=== PATIENT | male | born 1945 | race Caucasian/White ===

== ENCOUNTER 2018-09-01 02:08 | Outpatient (CLI) | payer MEDICARE, BC, SELFPAY ==
[2018-09-01 11:42] LABS: Vitamin B12 > 2000 pg/mL (193-986)
== END 2018-09-01 02:28 ==
PROVIDERS: PCP Emergency Medicine; Visit Provider Emergency Medicine
DX: E56.9 Vitamin deficiency, unspecified (principal)
CPT/HCPCS: 36415; 82607

== ENCOUNTER → 2018-09-14 10:46 | Outpatient (BNVA) | payer MEDICARE, BC, SELFPAY | PROVIDERS: PCP Emergency Medicine; Referring Provider Emergency Medicine; Visit Provider Physical Therapy Assistant | DX: L72.9 Follicular cyst of the skin and subcutaneous tissue, unspecified (principal); I10 Essential (primary) hypertension; J44.9 Chronic obstructive pulmonary disease, unspecified; Z87.891 Personal history of nicotine dependence | CPT/HCPCS: 99202; 99211 ==

== ENCOUNTER → 2018-09-29 11:23 | Outpatient (BNVA) | payer MEDICARE, BC, SELFPAY | PROVIDERS: PCP Emergency Medicine; Referring Provider Emergency Medicine; Visit Provider Physical Therapy Assistant | DX: L72.9 Follicular cyst of the skin and subcutaneous tissue, unspecified (principal); I10 Essential (primary) hypertension; J44.9 Chronic obstructive pulmonary disease, unspecified | CPT/HCPCS: 11402; 99212 ==

== ENCOUNTER 2020-04-09 14:34 | Outpatient (REF) | payer MEDICARE, BC, SELFPAY ==
[2020-04-09 15:04] LABS: Calculated LDL 164 mg/dL (<100); Cholesterol 245 mg/dL (<200); HDL Cholesterol 55 mg/dL (40-60); Triglyceride 132 mg/dL (<150); Vitamin B12 1946 pg/mL (193-986)
== END 2020-04-09 14:54 ==
LOC: LBN 14:34
PROVIDERS: PCP Emergency Medicine; Visit Provider Emergency Medicine
DX: I10 Essential (primary) hypertension (principal); E56.8 Deficiency of other vitamins
CPT/HCPCS: 80061; 82607

== ENCOUNTER 2021-09-17 03:45 | Outpatient (CLI) | payer MEDICARE, BC, SELFPAY ==
[2021-09-17 12:19] LABS: Iron 60 ug/dL (65-175); Total Iron Binding Capacity 300 ug/dL (250-450); Transferrin Sat 20 % (20-55)
[2021-09-17 12:49] LABS: ALT 27 U/L (16-63); AST 22 U/L (15-37); Albumin 3.9 g/dL (3.4-5.0); Alkaline Phosphatase 57 U/L (46-116); Anion Gap 10.3 mmol/L (3-11); BUN 20 mg/dL (7-18); Bilirubin, Total 0.9 mg/dL (0.2-1.0); CO2 27.7 mmol/L (21.0-32.0); CREATININE 1.2 mg/dL (0.70-1.30); Calcium 8.6 mg/dL (8.5-10.1); Calculated LDL 124 mg/dL (<100); Chloride 100 mmol/L (98-107); Cholesterol 210 mg/dL (<200); Estimated GFR 58.71 (mL/min/1.73m2); Ferritin 107 ng/mL (26-388); Glucose 100 mg/dL (74-106); HDL Cholesterol 72 mg/dL (40-60); Potassium 4.2 mmol/L (3.5-5.1); Sodium 138 mmol/L (136-145); Total Protein 6.8 g/dL (6.4-8.2); Triglyceride 72 mg/dL (<150); Vitamin B12 1859 pg/mL (193-986)
== END 2021-09-17 03:46 | disposition home or self-care (01) ==
LOC: LOS 03:45
PROVIDERS: PCP Family Medicine; Visit Provider Family Medicine
DX: I10 Essential (primary) hypertension (principal); E53.8 Deficiency of other specified B group vitamins; E78.5 Hyperlipidemia, unspecified; E83.19 Other disorders of iron metabolism
CPT/HCPCS: 36415; 80053; 80061; 82607; 82728; 83540; 83550

== ENCOUNTER 2022-09-01 09:56 | Outpatient (CLI) | payer MEDICARE, BC, SELFPAY ==
[2022-09-01 13:30] LABS: Calculated LDL 115 mg/dL (<100); Cholesterol 213 mg/dL (<200); HDL Cholesterol 63 mg/dL (40-60); Triglyceride 179 mg/dL (<150); Vitamin B12 944 pg/mL (193-986)
== END 2022-09-01 09:57 | disposition home or self-care (01) ==
PROVIDERS: PCP Family Medicine; Referring Provider Family Medicine; Visit Provider Family Medicine
DX: D51.9 Vitamin B12 deficiency anemia, unspecified (principal); E78.49 Other hyperlipidemia
CPT/HCPCS: 36415; 80061; 82607

== ENCOUNTER 2024-09-11 09:59 | Outpatient (CLI) | payer MEDICARE, BC, SELFPAY ==
[2024-09-11 12:45] LABS: BUN 20 mg/dL (7-18); CREATININE 1.1 mg/dL (0.70-1.30); Calcium 9.4 mg/dL (8.5-10.1); Chloride 100 mmol/L (98-107); Estimated GFR 67.86 (mL/min/1.73m2); Glucose 114 mg/dL (74-106); Potassium 3.9 mmol/L (3.5-5.1); Sodium 138 mmol/L (136-145)
[2024-09-11 21:19] LABS: Anion Gap 11.5 mmol/L (3-11); Calculated LDL 120 mg/dL (<100); Cholesterol 214 mg/dL (<200); HDL Cholesterol 67 mg/dL (>or=40); Triglyceride 138 mg/dL (<150)
[2024-09-11 21:21] LABS: CO2 26.5 mmol/L (21.0-32.0); Vitamin B12 > 2000 pg/mL (193-986)
== END 2024-09-11 10:00 | disposition home or self-care (01) ==
PROVIDERS: PCP Family Medicine; Referring Provider Family Medicine; Visit Provider Family Medicine
DX: D64.9 Anemia, unspecified (principal); E78.5 Hyperlipidemia, unspecified; E87.1 Hypo-osmolality and hyponatremia
CPT/HCPCS: 36415; 80048; 80061; 82607

== ENCOUNTER → 2024-11-14 14:20 | Outpatient (BNVA) | payer MEDICARE, BC, SELFPAY | PROVIDERS: PCP Family Medicine; Referring Provider Family Medicine; Visit Provider Surgery | DX: D48.5 Neoplasm of uncertain behavior of skin (principal) | CPT/HCPCS: 99203 ==

== ENCOUNTER → 2024-11-28 14:16 | Outpatient (BNVA) | payer MEDICARE, BC, SELFPAY | PROVIDERS: PCP Family Medicine; Referring Provider Family Medicine; Visit Provider Surgery | DX: L72.0 Epidermal cyst (principal) | CPT/HCPCS: 11402 ==

== ENCOUNTER → 2025-03-25 09:25 | Outpatient (BNVA) | payer MEDICARE, BC, SELFPAY | PROVIDERS: PCP Family Medicine; Referring Provider Family Medicine; Visit Provider Student in an Organized Health Care Education/Training Program | DX: M65.4 Radial styloid tenosynovitis [de Quervain] (principal) | CPT/HCPCS: 20605; J1010 ==